=== PATIENT | female | born 1990 | race American Indian/Alaskan Native ===

== ENCOUNTER 2018-03-31 12:39 | Emergency (ER) | payer SELFPAY ==
--- NOTE | 2018-03-31 13:39 | Emergency Department Report ---
Blank Doc - Documentation Documentation: This is a 28-year-old female that presents with rectal pain from hemorrhoids. Denies any other complaints. This initial assessment diagnostic orders/clinical plan/treatment(s) is/are subject to change based on patient's health status, clinical progression and re- assessment by fellow clinical providers in the ED. Further treatment and workup at subsequent clinical providers discretion. Patient/guardians urged not to elope from ED s their condition may be serious if not clinically assessed and managed. Initial orders include: 1-Patient sent to [facility] for further evaluation and treatment
[2018-03-31 13:40] VITALS: BP 124/57
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
--- NOTE | 2018-03-31 15:51 | XRay Report ---
FINAL REPORT EXAM: XR ABDOMEN 2V HISTORY: abd pain TECHNIQUE: AP upright and supine abdominal radiographs. PRIORS: None. FINDINGS: A moderate amount of retained stool in the colon. No free air. No bowel obstruction. No organomegaly or masses. No abnormal calcifications. No acute osseous abnormality. IMPRESSION: No acute intra-abdominal abnormality.
== END 2018-03-31 16:26 | disposition home or self-care (01) ==
LOC: ED 12:39
DX: K64.9 Unspecified hemorrhoids (principal)
CPT/HCPCS: 74019; 99283